=== PATIENT | male | born 1985 | race Two or more races ===

== ENCOUNTER 2018-10-29 10:52 | Emergency (ER) | payer MEDICAID ==
[~2018-10-29] VITALS: Ht 177.8 cm; Wt 80.3 kg
[2018-10-29 11:16] VITALS: BP 121/82
== END 2018-10-29 13:23 | disposition home or self-care (01) ==
LOC: ER 10:52
DX: S02.2XXA Fracture of nasal bones, initial encounter for closed fracture (principal); W51.XXXA Accidental striking against or bumped into by another person, initial encounter; Y93.71 Activity, boxing; Y99.8 Other external cause status; Y92.89 Other specified places as the place of occurrence of the external cause
CPT/HCPCS: 70160

== ENCOUNTER 2022-09-11 12:27 | Emergency (ER) | payer MEDICAID, OTHER ==
[~2022-09-11] VITALS: Ht 177.8 cm; Wt 85.2 kg
[2022-09-11 13:30] VITALS: BP 138/82
== END 2022-09-11 13:53 | disposition home or self-care (01) ==
LOC: ER 12:27
DX: S39.011A Strain of muscle, fascia and tendon of abdomen, initial encounter (principal); V43.62XA Car passenger injured in collision with other type car in traffic accident, initial encounter; Y93.89 Activity, other specified; Y92.488 Other paved roadways as the place of occurrence of the external cause; Y99.8 Other external cause status